=== PATIENT | female | born 1950 | race Caucasian/White ===

== ENCOUNTER → 2018-05-04 | Outpatient (REF) | payer MEDICARE ==
[2018-05-04 13:50] LABS: APPEARANCE, URINE CLOUDY (CLEAR); BACTERIA, URINE AUTO 1+ (NEGATIVE); BILIRUBIN, URINE AUTO NEGATIVE (NEGATIVE); BLOOD, URINE BLOOD NEGATIVE (NEGATIVE); COLOR, URINE AMBER (YELLOW); GLUCOSE, URINE (UA) AUTO NEGATIVE (NEGATIVE); KETONE, URINE AUTO NEGATIVE (NEGATIVE); LEUKOCYTE ESTERASE, URINE AUTO 3+ (NEGATIVE); MUCUS, URINE SMALL (NEGATIVE); NITRITE, URINE AUTO NEGATIVE (NEGATIVE); PROTEIN, URINE AUTO NEGATIVE (NEGATIVE); RBC, URINE AUTO 17 /HPF (0-3); SPECIFIC GRAVITY URINE AUTO 1.021 (1.002-1.035); SQUAMOUS EPITHELIAL CELL UR AU 5 /HPF (0-6); WBC, URINE AUTO 151 /HPF (0-3)
== END ==
LOC: M SMT 13:11
DX: R31.1 Benign essential microscopic hematuria (principal)
CPT/HCPCS: 81001

== ENCOUNTER → 2019-05-08 | Outpatient (REF) | payer MEDICARE ==
[2019-05-08 13:08] LABS: APPEARANCE, URINE MANUAL HAZY (CLEAR); BILIRUBIN, URINE MANUAL NEGATIVE (NEGATIVE); BLOOD URINE MANUAL POSITIVE (NEGATIVE); COLOR, URINE MANUAL YELLOW (YELLOW); GLUCOSE, URINE (UA) MANUAL NEGATIVE (NEGATIVE); KETONE, URINE MANUAL NEGATIVE (NEGATIVE); LEUKOCYTE ESTERASE, URINE MAN POSITIVE (NEGATIVE); PROTEIN, URINE MANUAL NEGATIVE (NEGATIVE); UROBILINOGEN, URINE MANUAL NORMAL (NORMAL)
[2019-05-08 13:09] LABS: NITRITE, URINE MANUAL NEGATIVE (NEGATIVE)
[2019-05-08 13:15] LABS: SQUAMOUS EPITHELIAL CELL URINE MOD AMOUNT /hpf (SMALL AMT)
[2019-05-08 13:16] LABS: BACTERIA, URINE LARGE AMOUNT; HYALINE CAST, URINE NONE SEEN /lpf (0-1)
== END ==
LOC: M SMT 12:51
PROVIDERS: ATTEND Nurse Practitioner Women's Health
DX: R31.1 Benign essential microscopic hematuria (principal)
CPT/HCPCS: 81000; 87086; 88108; G0463

== ENCOUNTER → 2019-11-08 | Outpatient (REF) | payer MEDICARE ==
[2019-11-08 15:38] LABS: APPEARANCE, URINE CLOUDY (CLEAR); BACTERIA, URINE AUTO NEGATIVE (NEGATIVE); BILIRUBIN, URINE AUTO NEGATIVE (NEGATIVE); BLOOD, URINE BLOOD NEGATIVE (NEGATIVE); COLOR, URINE YELLOW (YELLOW); GLUCOSE, URINE (UA) AUTO NEGATIVE (NEGATIVE); KETONE, URINE AUTO NEGATIVE (NEGATIVE); LEUKOCYTE ESTERASE, URINE AUTO 3+ (NEGATIVE); MUCUS, URINE SMALL (NEGATIVE); NITRITE, URINE AUTO NEGATIVE (NEGATIVE); PROTEIN, URINE AUTO NEGATIVE (NEGATIVE); RBC, URINE AUTO 9 /HPF (0-3); SPECIFIC GRAVITY URINE AUTO 1.015 (1.002-1.035); SQUAMOUS EPITHELIAL CELL UR AU 0 /HPF (0-6); UROBILINOGEN, URINE AUTO 0.2 mg/dL (0.0-2.0); WBC, URINE AUTO 82 /HPF (0-3)
== END ==
LOC: M SMT 14:55
PROVIDERS: ATTEND Nurse Practitioner Women's Health
DX: R31.1 Benign essential microscopic hematuria (principal)
CPT/HCPCS: 81001; 87086; 88108; G0463

== ENCOUNTER → 2019-12-08 | Outpatient (CLI) | payer MEDICARE ==
[~2019-12-08] MED LIST: ISOVUE-370 76% 100ML VIAL As Ordered ONE
--- NOTE | 2019-12-08 10:00 | REP ---
CT UROGRAPHY: CT ABDOMEN AND PELVIS WITHOUT AND DUAL-PHASE POSTCONTRAST IMAGING. HISTORY: Hematuria. COMPARISON STUDY: June 20, 2014. CT CONTRAST DOSE: 100 mL of intravenous Isovue 370. 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 The lung bases are clear on axial CT images. The liver shows minimal diffuse fatty infiltration. No focal liver lesion is seen. There are one or two granulomatous calcifications in the spleen. The spleen is not enlarged. No splenic mass lesion is observed. Cholelithiasis is noted with two large gallstones demonstrating laminated pattern of calcification. The largest of these measures 2 cm. No abnormality is noted in the pancreas. There is some mild vascular calcification in a normal caliber aorta. No retroperitoneal or mesenteric adenopathy is seen. Small and large bowel loops are unremarkable on CT images. No abdominal wall defect or bony destructive lesion is seen. There is no evidence of hydronephrosis. There is a tiny intrarenal calculus in the right mid kidney measuring 2 mm. This it is unchanged from the June 20, 2014 prior study. It could conceivably be vascular calcification. No other intrarenal calculus is noted. No ureteral calculus is seen. No bladder calculus is observed. There is no evidence of enhancing bladder mass. No filling defect is seen in the contrast opacified urinary bladder on delayed acquisition images. Similarly, the ureters and upper tract collecting systems appear intact on delayed images. There is a cyst visible in the right kidney on postcontrast imaging 1.2 cm in greatest diameter. This it is also unchanged. No renal mass lesion is observed. No uterine or ovarian abnormality is seen. IMPRESSION: 2 mm calcification in the right mid kidney may be an intrarenal calculus. This is unchanged from June 20, 2014 prior study. There is a small cyst in the right kidney unchanged. There are minimal diffuse fatty infiltration of the liver. Otherwise negative. Electronically Signed by Andrei Castro MD 12/08/2019 12:47 P
== END ==
LOC: M RAD 07:55
PROVIDERS: ATTEND Nurse Practitioner Women's Health
DX: R31.9 Hematuria, unspecified (principal); N28.1 Cyst of kidney, acquired; K76.0 Fatty (change of) liver, not elsewhere classified
CPT/HCPCS: 74178; Q9967

== ENCOUNTER → 2023-08-04 | Outpatient (CLI) | payer MEDICARE ==
[~2023-08-04] MED LIST changes: -ISOVUE-370 76% 100ML VIAL As Ordered ONE; +LETR2.5T2 PO; +LEVO50TA5 PO; +SERT50TA29 PO
== END ==
LOC: M ONCR 08:55
PROVIDERS: ATTEND General Practice
DX: C50.412 Malignant neoplasm of upper-outer quadrant of left female breast (principal); Z71.2 Person consulting for explanation of examination or test findings; Z98.890 Other specified postprocedural states; Z79.811 Long term (current) use of aromatase inhibitors; Z80.0 Family history of malignant neoplasm of digestive organs; Z87.891 Personal history of nicotine dependence

== ENCOUNTER 2023-08-11 10:29 | Outpatient (RCR) | payer MEDICARE ==
[~2023-08-11 10:29] MED LIST changes: +CRAN450T4 PO; +FISH1CAP26 FT; +MV-M1TAB13 PO; +OYST500C PO; +VITA100093 PO
== END 2023-08-19 ==
LOC: M ONCR 10:29
PROVIDERS: ATTEND General Practice
DX: Z51.0 Encounter for antineoplastic radiation therapy (principal); C50.412 Malignant neoplasm of upper-outer quadrant of left female breast

== ENCOUNTER 2023-09-17 10:54 | Outpatient (RCR) | payer MEDICARE | END 2023-09-19 | LOC: M ONCR 10:54 | PROVIDERS: ATTEND General Practice | DX: Z51.0 Encounter for antineoplastic radiation therapy (principal); C50.412 Malignant neoplasm of upper-outer quadrant of left female breast ==

== ENCOUNTER 2023-09-20 11:00 | Outpatient (RCR) | payer MEDICARE | END 2023-10-19 | LOC: M ONCR 11:00 | PROVIDERS: ATTEND General Practice | DX: Z51.0 Encounter for antineoplastic radiation therapy (principal); C50.412 Malignant neoplasm of upper-outer quadrant of left female breast ==

== ENCOUNTER → 2024-03-21 | Outpatient (CLI) | payer MEDICARE ==
[~2024-03-21] MED LIST changes: +PRAV20TA2
== END ==
LOC: M ONCR 10:47
PROVIDERS: ATTEND General Practice
DX: Z08 Encounter for follow-up examination after completed treatment for malignant neoplasm (principal); Z98.890 Other specified postprocedural states; Z79.890 Hormone replacement therapy; Z88.0 Allergy status to penicillin; Z88.1 Allergy status to other antibiotic agents; Z79.899 Other long term (current) drug therapy; Z85.3 Personal history of malignant neoplasm of breast; Z92.3 Personal history of irradiation

== ENCOUNTER → 2024-09-19 | Outpatient (CLI) | payer MEDICARE | LOC: M ONCR 10:47 | PROVIDERS: ATTEND General Practice | DX: Z08 Encounter for follow-up examination after completed treatment for malignant neoplasm (principal); Z85.3 Personal history of malignant neoplasm of breast; Z98.890 Other specified postprocedural states; Z92.3 Personal history of irradiation; Z79.811 Long term (current) use of aromatase inhibitors; Z88.0 Allergy status to penicillin; Z88.1 Allergy status to other antibiotic agents; Z79.899 Other long term (current) drug therapy ==